=== PATIENT | male | born 1995 | race Caucasian/White ===

== ENCOUNTER 2021-04-01 16:53 | Inpatient (IN) | payer OTHER ==
[~2021-04-01] VITALS: Ht 175.3 cm; Wt 65.8 kg
[2021-04-01] MEDS ORDERED: ACETAMINOPHEN 325 MG TABLET PO PRN ×2 (21:15→21:45)
[2021-04-01] MEDS ORDERED: SENNA 187 MG TABLET PO SCH (21:30)
[2021-04-01 21:32] VITALS: BP 121/63
[2021-04-01] MEDS ORDERED: OxyCODONE HCL 10 MG IR TABLET PO PRN (21:45)
[2021-04-01] MEDS ORDERED: ONDANSETRON HCL 4 MG TABLET PO PRN (21:45)
[2021-04-01] MEDS ORDERED: IBUPROFEN 800 MG TABLET PO PRN (21:45)
[2021-04-01] MEDS: DOCUSATE SODIUM 250 MG CAPSULE PO SCH (22:28)
[2021-04-01] MEDS: SENNA 187 MG TABLET PO SCH (22:28)
[2021-04-01] MEDS: ENOXAPARIN SODIUM 30 MG/0.3 ML PF SYRINGE SQ SCH (22:28)
[2021-04-01] MEDS: GABAPENTIN 300 MG CAPSULE PO SCH (22:28)
[2021-04-01] MEDS: ETHYL ALCOHOL 62% ANTISEPTIC NASAL INHALANT 0.6 ML AMPUL NASAL SCH (22:29)
[2021-04-01] MEDS: TiZANidine HCL 4 MG TABLET PO SCH (23:21)
[2021-04-01 23:36] VITALS: BP 107/49
[2021-04-02] MEDS: OxyCODONE HCL 5 MG IR TABLET PO PRN (04:44)
[2021-04-02 06:23] LABS: BASOPHILS % (AUTO) 0.8 % (0.0-2.0); EOSINOPHILS % (AUTO) 2.1 % (1.0-6.0); HEMATOCRIT 28.7 % (41-53); HEMOGLOBIN 9.9 g/dL (13.5-17.5); LYMPHOCYTES # (AUTO) 1.1 K/uL (1.0-4.8); LYMPHOCYTES % (AUTO) 15.9 % (22.0-44.0); MEAN CORPUSCULAR HEMOGLOBIN 31.9 pg (26.0-34.0); MEAN CORPUSCULAR HGB CONC 34.6 G/dL (31.0-37.0); MEAN CORPUSCULAR VOLUME 92 fL (80-100); MONOCYTES # (AUTO) 0.6 K/uL (0.1-1.0); MONOCYTES % (AUTO) 9.1 % (2.0-9.0); NEUTROPHILS # (AUTO) 5.1 K/uL (1.8-7.7); NEUTROPHILS % (AUTO) 72.1 % (40.0-70.0); PLATELET COUNT (AUTO) 206 K/uL (150-450); RED BLOOD CELL COUNT(AUTO) 3.11 MIL/uL (4.50-5.90); RED CELL DISTRIBUTION WIDTH 13.1 % (11.5-14.5)
[2021-04-02 06:39] LABS: ALANINE AMINOTRANSFERASE 28 U/L (12-78); ALBUMIN 2.9 g/dL (3.4-5.0); ALKALINE PHOSPHATASE 37 U/L (46-116); ANION GAP 6 mmol/L (8-16); ASPARTATE AMINOTRANSFERASE 42 U/L (15-37); BILIRUBIN,TOTAL 0.6 mg/dL (0.1-1.0); CALCIUM, TOTAL 8.3 mg/dL (8.8-10.5); CARBON DIOXIDE 28 mmol/L (22-29); CHLORIDE 106 mmol/L (98-107); CREATININE 0.82 mg/dL (0.60-1.30); GLOMERULAR FILTR. RATE CALC > 60 mL/min (>60); GLUCOSE,RANDOM 97 mg/dL (70-110); POTASSIUM 3.9 mmol/L (3.5-5.1); SODIUM SERUM 140 mmol/L (136-145); UREA NITROGEN, BLOOD 7 mg/dL (7-18)
[2021-04-02] MEDS: NICOTINE 21 MG/24 HOUR PATCH TD SCH (07:58)
[2021-04-02] MEDS: TiZANidine HCL 4 MG TABLET PO SCH ×3 (07:58→20:13)
[2021-04-02] MEDS: GABAPENTIN 300 MG CAPSULE PO SCH ×3 (07:59→20:14)
[2021-04-02] MEDS: ENOXAPARIN SODIUM 30 MG/0.3 ML PF SYRINGE SQ SCH ×2 (07:59→20:13)
[2021-04-02] MEDS: POLYETHYLENE GLYCOL 3350 17 GM PACKET PO SCH (07:59)
[2021-04-02] MEDS: DOCUSATE SODIUM 250 MG CAPSULE PO SCH ×2 (07:59→20:14)
[2021-04-02] MEDS: ETHYL ALCOHOL 62% ANTISEPTIC NASAL INHALANT 0.6 ML AMPUL NASAL SCH ×2 (08:00→20:13)
[2021-04-02] MEDS: FERROUS SULFATE 325 MG EC TABLET PO SCH ×3 (08:00→17:25)
[2021-04-02 08:44] VITALS: BP 112/60
[2021-04-02] MEDS ORDERED: TiZANidine HCL 4 MG TABLET PO SCH (09:00)
[2021-04-02] MEDS ORDERED: GABAPENTIN 300 MG CAPSULE PO SCH (09:00)
[2021-04-02] MEDS ORDERED: ETHYL ALCOHOL 62% ANTISEPTIC NASAL INHALANT 0.6 ML AMPUL NASAL SCH (09:00)
[2021-04-02 16:13] VITALS: BP 111/63
[2021-04-02] MEDS: SENNA 187 MG TABLET PO SCH (20:13)
[2021-04-02] MEDS ORDERED: SENNA 187 MG TABLET PO SCH (21:00)
[2021-04-03 02:40] VITALS: BP 122/70
[2021-04-03 08:02] VITALS: BP 123/76
[2021-04-03] MEDS: NICOTINE 21 MG/24 HOUR PATCH TD SCH (08:22)
[2021-04-03] MEDS: ENOXAPARIN SODIUM 30 MG/0.3 ML PF SYRINGE SQ SCH ×2 (08:22→20:19)
[2021-04-03] MEDS: POLYETHYLENE GLYCOL 3350 17 GM PACKET PO SCH (08:23)
[2021-04-03] MEDS: GABAPENTIN 300 MG CAPSULE PO SCH ×3 (08:23→20:19)
[2021-04-03] MEDS: FERROUS SULFATE 325 MG EC TABLET PO SCH ×3 (08:23→17:29)
[2021-04-03] MEDS: DOCUSATE SODIUM 250 MG CAPSULE PO SCH ×2 (08:23→20:18)
[2021-04-03] MEDS: ETHYL ALCOHOL 62% ANTISEPTIC NASAL INHALANT 0.6 ML AMPUL NASAL SCH ×2 (08:23→20:18)
[2021-04-03] MEDS: TiZANidine HCL 4 MG TABLET PO SCH ×3 (08:25→20:19)
[2021-04-03] MEDS ORDERED: DOCUSATE SODIUM 283 MG/5 ML MINI-ENEMA PR PRN (08:45)
[2021-04-03 16:12] VITALS: BP 112/70
[2021-04-03] MEDS: SENNA 187 MG TABLET PO SCH (20:19)
[2021-04-04 06:12] VITALS: BP 128/59
[2021-04-04] MEDS: ETHYL ALCOHOL 62% ANTISEPTIC NASAL INHALANT 0.6 ML AMPUL NASAL SCH ×2 (08:08→20:30)
[2021-04-04] MEDS: ENOXAPARIN SODIUM 30 MG/0.3 ML PF SYRINGE SQ SCH ×2 (08:08→20:31)
[2021-04-04] MEDS: GABAPENTIN 300 MG CAPSULE PO SCH ×3 (08:08→20:31)
[2021-04-04] MEDS: POLYETHYLENE GLYCOL 3350 17 GM PACKET PO SCH (08:08)
[2021-04-04] MEDS: DOCUSATE SODIUM 250 MG CAPSULE PO SCH ×2 (08:08→20:32)
[2021-04-04] MEDS: FERROUS SULFATE 325 MG EC TABLET PO SCH ×3 (08:08→17:30)
[2021-04-04] MEDS: TiZANidine HCL 4 MG TABLET PO SCH ×3 (08:08→20:32)
[2021-04-04] MEDS: NICOTINE 21 MG/24 HOUR PATCH TD SCH (08:09)
[2021-04-04 08:28] VITALS: BP 123/65
[2021-04-04 16:02] VITALS: BP 113/63
[2021-04-04] MEDS: SENNA 187 MG TABLET PO SCH (20:31)
[2021-04-05 05:17] VITALS: BP 116/60
[2021-04-05] MEDS: NICOTINE 21 MG/24 HOUR PATCH TD SCH (07:49)
[2021-04-05] MEDS: ENOXAPARIN SODIUM 30 MG/0.3 ML PF SYRINGE SQ SCH ×2 (07:49→20:16)
[2021-04-05] MEDS: POLYETHYLENE GLYCOL 3350 17 GM PACKET PO SCH (07:49)
[2021-04-05] MEDS: TiZANidine HCL 4 MG TABLET PO SCH ×3 (07:50→20:16)
[2021-04-05] MEDS: ETHYL ALCOHOL 62% ANTISEPTIC NASAL INHALANT 0.6 ML AMPUL NASAL SCH ×2 (07:50→20:16)
[2021-04-05] MEDS: GABAPENTIN 300 MG CAPSULE PO SCH ×3 (07:50→20:16)
[2021-04-05] MEDS: DOCUSATE SODIUM 250 MG CAPSULE PO SCH ×2 (07:50→20:16)
[2021-04-05] MEDS: FERROUS SULFATE 325 MG EC TABLET PO SCH ×3 (07:50→17:40)
[2021-04-05 07:51] VITALS: BP 116/55
[2021-04-05] MEDS: OxyCODONE HCL 5 MG IR TABLET PO PRN (07:51)
[2021-04-05 16:00] VITALS: BP 115/69
[2021-04-05] MEDS: SENNA 187 MG TABLET PO SCH (20:16)
[2021-04-06 03:30] VITALS: BP 122/68
[2021-04-06] MEDS: ENOXAPARIN SODIUM 30 MG/0.3 ML PF SYRINGE SQ SCH ×2 (08:14→20:12)
[2021-04-06] MEDS: NICOTINE 21 MG/24 HOUR PATCH TD SCH (08:14)
[2021-04-06] MEDS: ETHYL ALCOHOL 62% ANTISEPTIC NASAL INHALANT 0.6 ML AMPUL NASAL SCH ×2 (08:14→20:13)
[2021-04-06] MEDS: DOCUSATE SODIUM 250 MG CAPSULE PO SCH ×2 (08:15→20:13)
[2021-04-06] MEDS: TiZANidine HCL 4 MG TABLET PO SCH ×3 (08:15→20:13)
[2021-04-06] MEDS: POLYETHYLENE GLYCOL 3350 17 GM PACKET PO SCH (08:15)
[2021-04-06] MEDS: FERROUS SULFATE 325 MG EC TABLET PO SCH ×3 (08:15→17:48)
[2021-04-06] MEDS: GABAPENTIN 300 MG CAPSULE PO SCH ×3 (08:21→20:13)
[2021-04-06 08:50] VITALS: BP 128/79
[2021-04-06 16:00] VITALS: BP 112/68
[2021-04-06] MEDS: SENNA 187 MG TABLET PO SCH (20:13)
[2021-04-07] MEDS ORDERED: GABA-1181 PO ×2 (02:51→15:46)
[2021-04-07] MEDS ORDERED: OXYC5 PO (02:51)
[2021-04-07] MEDS ORDERED: ACET-3385 PO (02:51)
[2021-04-07] MEDS ORDERED: DOCU-350 PO ×2 (02:51→15:46)
[2021-04-07] MEDS ORDERED: ASPI-1450 PO (02:51)
[2021-04-07 06:00] VITALS: BP 121/69
[2021-04-07] MEDS: POLYETHYLENE GLYCOL 3350 17 GM PACKET PO SCH (08:03)
[2021-04-07] MEDS: ETHYL ALCOHOL 62% ANTISEPTIC NASAL INHALANT 0.6 ML AMPUL NASAL SCH ×2 (08:04→20:20)
[2021-04-07] MEDS: GABAPENTIN 300 MG CAPSULE PO SCH ×3 (08:04→20:20)
[2021-04-07] MEDS: MULTIVITAMINS WITH MINERALS, THERAPEUTIC TABLET PO SCH (08:04)
[2021-04-07] MEDS: DOCUSATE SODIUM 250 MG CAPSULE PO SCH ×2 (08:04→20:20)
[2021-04-07] MEDS: NICOTINE 21 MG/24 HOUR PATCH TD SCH (08:04)
[2021-04-07] MEDS: TiZANidine HCL 4 MG TABLET PO SCH (08:04)
[2021-04-07] MEDS: ENOXAPARIN SODIUM 30 MG/0.3 ML PF SYRINGE SQ SCH ×2 (08:04→20:20)
[2021-04-07] MEDS: FERROUS SULFATE 325 MG EC TABLET PO SCH ×3 (08:05→17:30)
[2021-04-07 08:31] LABS: BASOPHILS % (AUTO) 0.8 % (0.0-2.0); EOSINOPHILS % (AUTO) 2.5 % (1.0-6.0); HEMATOCRIT 35.2 % (41-53); HEMOGLOBIN 11.9 g/dL (13.5-17.5); LYMPHOCYTES # (AUTO) 0.8 K/uL (1.0-4.8); LYMPHOCYTES % (AUTO) 11.8 % (22.0-44.0); MEAN CORPUSCULAR HEMOGLOBIN 31.6 pg (26.0-34.0); MEAN CORPUSCULAR HGB CONC 33.9 G/dL (31.0-37.0); MEAN CORPUSCULAR VOLUME 93 fL (80-100); MONOCYTES # (AUTO) 0.6 K/uL (0.1-1.0); MONOCYTES % (AUTO) 8.4 % (2.0-9.0); NEUTROPHILS # (AUTO) 5.4 K/uL (1.8-7.7); NEUTROPHILS % (AUTO) 76.5 % (40.0-70.0); PLATELET COUNT (AUTO) 386 K/uL (150-450); RED BLOOD CELL COUNT(AUTO) 3.78 MIL/uL (4.50-5.90); RED CELL DISTRIBUTION WIDTH 13.7 % (11.5-14.5)
[2021-04-07 08:33] VITALS: BP 122/74
[2021-04-07] MEDS ORDERED: TiZANidine HCL 4 MG TABLET PO PRN (10:30)
[2021-04-07] MEDS ORDERED: MULT-248 PO (15:46)
[2021-04-07] MEDS ORDERED: POLY17PO47 PO (15:46)
[2021-04-07] MEDS ORDERED: NICO-803 TD (15:46)
[2021-04-07] MEDS ORDERED: FERR-89 PO (15:46)
[2021-04-07 16:01] VITALS: BP 139/77
[2021-04-07] MEDS: SENNA 187 MG TABLET PO SCH (20:21)
[2021-04-07 23:53] VITALS: BP 119/70
[2021-04-08] VITALS: BP 119/70
[2021-04-08] MEDS: MULTIVITAMINS WITH MINERALS, THERAPEUTIC TABLET PO SCH (08:23)
[2021-04-08] MEDS: ETHYL ALCOHOL 62% ANTISEPTIC NASAL INHALANT 0.6 ML AMPUL NASAL SCH ×2 (08:23→20:10)
[2021-04-08] MEDS: DOCUSATE SODIUM 250 MG CAPSULE PO SCH ×2 (08:23→20:10)
[2021-04-08] MEDS: FERROUS SULFATE 325 MG EC TABLET PO SCH ×3 (08:23→17:26)
[2021-04-08] MEDS: GABAPENTIN 300 MG CAPSULE PO SCH ×3 (08:23→20:10)
[2021-04-08] MEDS: ENOXAPARIN SODIUM 30 MG/0.3 ML PF SYRINGE SQ SCH ×2 (08:24→20:10)
[2021-04-08] MEDS: NICOTINE 21 MG/24 HOUR PATCH TD SCH (08:25)
[2021-04-08] MEDS: POLYETHYLENE GLYCOL 3350 17 GM PACKET PO SCH (08:25)
[2021-04-08 09:16] VITALS: BP 118/61
[2021-04-08 16:49] VITALS: BP 129/75
[2021-04-08] MEDS: SENNA 187 MG TABLET PO SCH (20:10)
[2021-04-09 06:01] VITALS: BP 122/74
[2021-04-09] MEDS: NICOTINE 21 MG/24 HOUR PATCH TD SCH (08:22)
[2021-04-09] MEDS: ENOXAPARIN SODIUM 30 MG/0.3 ML PF SYRINGE SQ SCH ×2 (08:22→20:31)
[2021-04-09] MEDS: ETHYL ALCOHOL 62% ANTISEPTIC NASAL INHALANT 0.6 ML AMPUL NASAL SCH ×2 (08:22→20:30)
[2021-04-09] MEDS: GABAPENTIN 300 MG CAPSULE PO SCH ×3 (08:23→20:30)
[2021-04-09] MEDS: FERROUS SULFATE 325 MG EC TABLET PO SCH ×3 (08:23→17:55)
[2021-04-09] MEDS: MULTIVITAMINS WITH MINERALS, THERAPEUTIC TABLET PO SCH (08:23)
[2021-04-09] MEDS: DOCUSATE SODIUM 250 MG CAPSULE PO SCH ×2 (08:23→20:30)
[2021-04-09] MEDS: POLYETHYLENE GLYCOL 3350 17 GM PACKET PO SCH (08:29)
[2021-04-09 08:36] VITALS: BP 121/75
[2021-04-09 16:00] VITALS: BP 120/60
[2021-04-09] MEDS: SENNA 187 MG TABLET PO SCH (20:30)
[2021-04-10 05:43] VITALS: BP 122/69
[2021-04-10 08:02] VITALS: BP 118/78
[2021-04-10] MEDS: DOCUSATE SODIUM 250 MG CAPSULE PO SCH ×2 (08:46→20:35)
[2021-04-10] MEDS: ETHYL ALCOHOL 62% ANTISEPTIC NASAL INHALANT 0.6 ML AMPUL NASAL SCH ×2 (08:46→20:35)
[2021-04-10] MEDS: MULTIVITAMINS WITH MINERALS, THERAPEUTIC TABLET PO SCH (08:46)
[2021-04-10] MEDS: POLYETHYLENE GLYCOL 3350 17 GM PACKET PO SCH (08:46)
[2021-04-10] MEDS: GABAPENTIN 300 MG CAPSULE PO SCH ×3 (08:46→20:35)
[2021-04-10] MEDS: NICOTINE 21 MG/24 HOUR PATCH TD SCH (08:46)
[2021-04-10] MEDS: ENOXAPARIN SODIUM 30 MG/0.3 ML PF SYRINGE SQ SCH ×2 (08:46→20:35)
[2021-04-10] MEDS: FERROUS SULFATE 325 MG EC TABLET PO SCH ×3 (08:46→17:29)
[2021-04-10 16:02] VITALS: BP 129/72
[2021-04-10] MEDS: SENNA 187 MG TABLET PO SCH (20:35)
[2021-04-11] VITALS: BP 118/57
[2021-04-11] MEDS: ETHYL ALCOHOL 62% ANTISEPTIC NASAL INHALANT 0.6 ML AMPUL NASAL SCH ×2 (08:05→20:20)
[2021-04-11] MEDS: POLYETHYLENE GLYCOL 3350 17 GM PACKET PO SCH (08:05)
[2021-04-11] MEDS: NICOTINE 21 MG/24 HOUR PATCH TD SCH (08:05)
[2021-04-11] MEDS: MULTIVITAMINS WITH MINERALS, THERAPEUTIC TABLET PO SCH (08:05)
[2021-04-11] MEDS: FERROUS SULFATE 325 MG EC TABLET PO SCH ×3 (08:05→17:42)
[2021-04-11] MEDS: ENOXAPARIN SODIUM 30 MG/0.3 ML PF SYRINGE SQ SCH ×2 (08:05→20:27)
[2021-04-11] MEDS: DOCUSATE SODIUM 250 MG CAPSULE PO SCH ×3 (08:05→20:28)
[2021-04-11] MEDS: GABAPENTIN 300 MG CAPSULE PO SCH ×3 (08:05→20:20)
[2021-04-11 08:23] VITALS: BP 122/68
[2021-04-11 16:18] VITALS: BP 102/65
[2021-04-11] MEDS: SENNA 187 MG TABLET PO SCH (20:21)
[2021-04-12 00:28] VITALS: BP 108/68
[2021-04-12] MEDS: ENOXAPARIN SODIUM 30 MG/0.3 ML PF SYRINGE SQ SCH ×2 (08:16→20:27)
[2021-04-12] MEDS: MULTIVITAMINS WITH MINERALS, THERAPEUTIC TABLET PO SCH (08:17)
[2021-04-12] MEDS: GABAPENTIN 300 MG CAPSULE PO SCH ×3 (08:17→20:27)
[2021-04-12] MEDS: ETHYL ALCOHOL 62% ANTISEPTIC NASAL INHALANT 0.6 ML AMPUL NASAL SCH ×2 (08:17→20:27)
[2021-04-12] MEDS: NICOTINE 21 MG/24 HOUR PATCH TD SCH (08:17)
[2021-04-12] MEDS: FERROUS SULFATE 325 MG EC TABLET PO SCH ×3 (08:18→17:37)
[2021-04-12] MEDS: DOCUSATE SODIUM 250 MG CAPSULE PO SCH ×2 (08:21→20:27)
[2021-04-12] MEDS: POLYETHYLENE GLYCOL 3350 17 GM PACKET PO SCH (08:21)
[2021-04-12 08:23] VITALS: BP 117/69
[2021-04-12 16:00] VITALS: BP 118/60
[2021-04-12] MEDS: SENNA 187 MG TABLET PO SCH (20:27)
[2021-04-13 06:06] VITALS: BP 107/65
[2021-04-13] MEDS: ETHYL ALCOHOL 62% ANTISEPTIC NASAL INHALANT 0.6 ML AMPUL NASAL SCH ×2 (07:49→21:30)
[2021-04-13] MEDS: FERROUS SULFATE 325 MG EC TABLET PO SCH ×3 (07:49→16:00)
[2021-04-13] MEDS: NICOTINE 21 MG/24 HOUR PATCH TD SCH (07:49)
[2021-04-13] MEDS: GABAPENTIN 300 MG CAPSULE PO SCH ×3 (07:49→21:30)
[2021-04-13] MEDS: POLYETHYLENE GLYCOL 3350 17 GM PACKET PO SCH (07:49)
[2021-04-13] MEDS: MULTIVITAMINS WITH MINERALS, THERAPEUTIC TABLET PO SCH (07:49)
[2021-04-13] MEDS: DOCUSATE SODIUM 250 MG CAPSULE PO SCH ×2 (07:49→21:30)
[2021-04-13] MEDS: ENOXAPARIN SODIUM 30 MG/0.3 ML PF SYRINGE SQ SCH ×2 (07:49→21:30)
[2021-04-13 08:09] VITALS: BP 117/69
[2021-04-13 16:11] VITALS: BP 110/66
[2021-04-13] MEDS: SENNA 187 MG TABLET PO SCH (21:00)
[2021-04-14] VITALS: BP 114/68
[2021-04-14] MEDS: MULTIVITAMINS WITH MINERALS, THERAPEUTIC TABLET PO SCH (07:43)
[2021-04-14] MEDS: GABAPENTIN 300 MG CAPSULE PO SCH ×3 (07:43→20:56)
[2021-04-14] MEDS: ETHYL ALCOHOL 62% ANTISEPTIC NASAL INHALANT 0.6 ML AMPUL NASAL SCH ×2 (07:43→20:56)
[2021-04-14] MEDS: NICOTINE 21 MG/24 HOUR PATCH TD SCH (07:43)
[2021-04-14] MEDS: ENOXAPARIN SODIUM 30 MG/0.3 ML PF SYRINGE SQ SCH ×2 (07:43→20:57)
[2021-04-14] MEDS: FERROUS SULFATE 325 MG EC TABLET PO SCH ×3 (07:44→16:32)
[2021-04-14] MEDS: DOCUSATE SODIUM 250 MG CAPSULE PO SCH ×2 (07:44→20:56)
[2021-04-14] MEDS: POLYETHYLENE GLYCOL 3350 17 GM PACKET PO SCH (07:44)
[2021-04-14 10:48] VITALS: BP 116/71
[2021-04-14 16:33] VITALS: BP 129/61
[2021-04-14] MEDS: SENNA 187 MG TABLET PO SCH (21:00)
[2021-04-15 00:30] VITALS: BP 126/68
[2021-04-15] MEDS: DOCUSATE SODIUM 250 MG CAPSULE PO SCH ×2 (07:37→20:16)
[2021-04-15] MEDS: FERROUS SULFATE 325 MG EC TABLET PO SCH ×3 (07:37→16:15)
[2021-04-15] MEDS: MULTIVITAMINS WITH MINERALS, THERAPEUTIC TABLET PO SCH (07:37)
[2021-04-15] MEDS: NICOTINE 21 MG/24 HOUR PATCH TD SCH (07:37)
[2021-04-15] MEDS: GABAPENTIN 300 MG CAPSULE PO SCH ×3 (07:38→20:16)
[2021-04-15] MEDS: ETHYL ALCOHOL 62% ANTISEPTIC NASAL INHALANT 0.6 ML AMPUL NASAL SCH ×2 (07:38→20:16)
[2021-04-15] MEDS: ENOXAPARIN SODIUM 30 MG/0.3 ML PF SYRINGE SQ SCH ×2 (07:38→20:16)
[2021-04-15] MEDS: POLYETHYLENE GLYCOL 3350 17 GM PACKET PO SCH (07:38)
[2021-04-15 14:00] VITALS: BP 94/58
[2021-04-15 16:46] VITALS: BP 107/61
[2021-04-15] MEDS: SENNA 187 MG TABLET PO SCH (20:16)
[2021-04-16 00:29] VITALS: BP 103/54
[2021-04-16] MEDS: FERROUS SULFATE 325 MG EC TABLET PO SCH ×3 (07:30→16:01)
[2021-04-16] MEDS: NICOTINE 21 MG/24 HOUR PATCH TD SCH (08:13)
[2021-04-16] MEDS: DOCUSATE SODIUM 250 MG CAPSULE PO SCH ×2 (08:14→20:59)
[2021-04-16] MEDS: GABAPENTIN 300 MG CAPSULE PO SCH ×3 (08:14→20:58)
[2021-04-16] MEDS: ETHYL ALCOHOL 62% ANTISEPTIC NASAL INHALANT 0.6 ML AMPUL NASAL SCH ×2 (08:14→20:58)
[2021-04-16] MEDS: POLYETHYLENE GLYCOL 3350 17 GM PACKET PO SCH (08:14)
[2021-04-16] MEDS: MULTIVITAMINS WITH MINERALS, THERAPEUTIC TABLET PO SCH (08:14)
[2021-04-16] MEDS: ENOXAPARIN SODIUM 30 MG/0.3 ML PF SYRINGE SQ SCH ×2 (08:15→20:59)
[2021-04-16 14:33] VITALS: BP 118/79
[2021-04-16 17:06] VITALS: BP 96/63
[2021-04-16] MEDS: SENNA 187 MG TABLET PO SCH (20:59)
[2021-04-17 05:50] VITALS: BP 118/53
[2021-04-17] MEDS: ETHYL ALCOHOL 62% ANTISEPTIC NASAL INHALANT 0.6 ML AMPUL NASAL SCH ×2 (07:38→20:40)
[2021-04-17] MEDS: ENOXAPARIN SODIUM 30 MG/0.3 ML PF SYRINGE SQ SCH ×2 (07:39→20:41)
[2021-04-17] MEDS: NICOTINE 21 MG/24 HOUR PATCH TD SCH (07:39)
[2021-04-17] MEDS: DOCUSATE SODIUM 250 MG CAPSULE PO SCH ×2 (07:39→20:40)
[2021-04-17] MEDS: MULTIVITAMINS WITH MINERALS, THERAPEUTIC TABLET PO SCH (07:39)
[2021-04-17] MEDS: FERROUS SULFATE 325 MG EC TABLET PO SCH ×3 (07:40→17:27)
[2021-04-17] MEDS: GABAPENTIN 300 MG CAPSULE PO SCH ×3 (07:40→20:41)
[2021-04-17] MEDS: POLYETHYLENE GLYCOL 3350 17 GM PACKET PO SCH (07:40)
[2021-04-17 15:21] VITALS: BP 110/76
[2021-04-17 16:13] VITALS: BP 110/63
[2021-04-17] MEDS: SENNA 187 MG TABLET PO SCH (20:41)
[2021-04-18 06:00] VITALS: BP 111/62
[2021-04-18] MEDS: GABAPENTIN 300 MG CAPSULE PO SCH ×3 (07:51→20:40)
[2021-04-18] MEDS: NICOTINE 21 MG/24 HOUR PATCH TD SCH (07:51)
[2021-04-18] MEDS: ETHYL ALCOHOL 62% ANTISEPTIC NASAL INHALANT 0.6 ML AMPUL NASAL SCH ×2 (07:52→20:40)
[2021-04-18] MEDS: DOCUSATE SODIUM 250 MG CAPSULE PO SCH ×2 (07:52→20:40)
[2021-04-18] MEDS: ENOXAPARIN SODIUM 30 MG/0.3 ML PF SYRINGE SQ SCH ×2 (07:52→20:41)
[2021-04-18] MEDS: POLYETHYLENE GLYCOL 3350 17 GM PACKET PO SCH (07:52)
[2021-04-18] MEDS: FERROUS SULFATE 325 MG EC TABLET PO SCH ×3 (07:52→17:29)
[2021-04-18] MEDS: MULTIVITAMINS WITH MINERALS, THERAPEUTIC TABLET PO SCH (07:52)
[2021-04-18 13:05] VITALS: BP 110/64
[2021-04-18 16:20] VITALS: BP 102/68
[2021-04-18] MEDS: SENNA 187 MG TABLET PO SCH (20:41)
[2021-04-19] VITALS: BP 123/58
[2021-04-19] MEDS: DOCUSATE SODIUM 250 MG CAPSULE PO SCH ×2 (08:26→20:14)
[2021-04-19] MEDS: MULTIVITAMINS WITH MINERALS, THERAPEUTIC TABLET PO SCH (08:26)
[2021-04-19] MEDS: GABAPENTIN 300 MG CAPSULE PO SCH ×3 (08:26→20:14)
[2021-04-19] MEDS: FERROUS SULFATE 325 MG EC TABLET PO SCH ×3 (08:26→16:06)
[2021-04-19] MEDS: ENOXAPARIN SODIUM 30 MG/0.3 ML PF SYRINGE SQ SCH ×2 (08:27→20:14)
[2021-04-19] MEDS: NICOTINE 21 MG/24 HOUR PATCH TD SCH (08:27)
[2021-04-19] MEDS: POLYETHYLENE GLYCOL 3350 17 GM PACKET PO SCH (08:27)
[2021-04-19] MEDS: ETHYL ALCOHOL 62% ANTISEPTIC NASAL INHALANT 0.6 ML AMPUL NASAL SCH ×2 (08:27→20:14)
[2021-04-19 08:42] VITALS: BP 121/59
[2021-04-19 15:31] VITALS: BP 111/58
[2021-04-19] MEDS: SENNA 187 MG TABLET PO SCH (20:14)
[2021-04-19 23:52] VITALS: BP 122/70
[2021-04-20] MEDS: NICOTINE 21 MG/24 HOUR PATCH TD SCH (08:20)
[2021-04-20] MEDS: ETHYL ALCOHOL 62% ANTISEPTIC NASAL INHALANT 0.6 ML AMPUL NASAL SCH ×2 (08:20→20:42)
[2021-04-20] MEDS: FERROUS SULFATE 325 MG EC TABLET PO SCH ×3 (08:20→17:41)
[2021-04-20] MEDS: MULTIVITAMINS WITH MINERALS, THERAPEUTIC TABLET PO SCH (08:20)
[2021-04-20] MEDS: DOCUSATE SODIUM 250 MG CAPSULE PO SCH ×2 (08:20→20:41)
[2021-04-20] MEDS: POLYETHYLENE GLYCOL 3350 17 GM PACKET PO SCH (08:20)
[2021-04-20] MEDS: ENOXAPARIN SODIUM 30 MG/0.3 ML PF SYRINGE SQ SCH ×2 (08:21→20:42)
[2021-04-20] MEDS: GABAPENTIN 300 MG CAPSULE PO SCH ×3 (08:21→20:42)
[2021-04-20 08:34] VITALS: BP 112/60
[2021-04-20 16:44] VITALS: BP 107/57
[2021-04-20] MEDS: SENNA 187 MG TABLET PO SCH (20:42)
[2021-04-21 00:33] VITALS: BP 112/58
[2021-04-21] MEDS: ENOXAPARIN SODIUM 30 MG/0.3 ML PF SYRINGE SQ SCH ×2 (09:24→20:03)
[2021-04-21] MEDS: POLYETHYLENE GLYCOL 3350 17 GM PACKET PO SCH (09:25)
[2021-04-21] MEDS: DOCUSATE SODIUM 250 MG CAPSULE PO SCH ×2 (09:25→20:03)
[2021-04-21] MEDS: NICOTINE 21 MG/24 HOUR PATCH TD SCH (09:25)
[2021-04-21] MEDS: FERROUS SULFATE 325 MG EC TABLET PO SCH ×3 (09:25→17:27)
[2021-04-21] MEDS: MULTIVITAMINS WITH MINERALS, THERAPEUTIC TABLET PO SCH (09:25)
[2021-04-21] MEDS: GABAPENTIN 300 MG CAPSULE PO SCH ×3 (09:25→20:03)
[2021-04-21] MEDS: ETHYL ALCOHOL 62% ANTISEPTIC NASAL INHALANT 0.6 ML AMPUL NASAL SCH ×2 (09:36→20:03)
[2021-04-21 15:26] VITALS: BP 120/65
[2021-04-21 16:01] VITALS: BP 113/63
[2021-04-21] MEDS: SENNA 187 MG TABLET PO SCH (20:04)
[2021-04-22 05:50] VITALS: BP 110/58
[2021-04-22] MEDS: MULTIVITAMINS WITH MINERALS, THERAPEUTIC TABLET PO SCH (09:50)
[2021-04-22] MEDS: ENOXAPARIN SODIUM 30 MG/0.3 ML PF SYRINGE SQ SCH ×2 (09:51→20:54)
[2021-04-22] MEDS: GABAPENTIN 300 MG CAPSULE PO SCH ×3 (09:51→20:54)
[2021-04-22] MEDS: POLYETHYLENE GLYCOL 3350 17 GM PACKET PO SCH (09:51)
[2021-04-22] MEDS: FERROUS SULFATE 325 MG EC TABLET PO SCH (09:51)
[2021-04-22] MEDS: ETHYL ALCOHOL 62% ANTISEPTIC NASAL INHALANT 0.6 ML AMPUL NASAL SCH ×2 (09:52→20:54)
[2021-04-22] MEDS: DOCUSATE SODIUM 250 MG CAPSULE PO SCH (09:52)
[2021-04-22 11:05] VITALS: BP 115/62
[2021-04-22] MEDS: NICOTINE 21 MG/24 HOUR PATCH TD SCH (12:45)
[2021-04-22] MEDS ORDERED: ASPI-989 PO (14:32)
[2021-04-22 18:00] VITALS: BP 118/68
[2021-04-23 02:05] VITALS: BP 115/57
[2021-04-23] MEDS: ENOXAPARIN SODIUM 30 MG/0.3 ML PF SYRINGE SQ SCH ×2 (08:09→20:41)
[2021-04-23] MEDS: MULTIVITAMINS WITH MINERALS, THERAPEUTIC TABLET PO SCH (08:10)
[2021-04-23] MEDS: POLYETHYLENE GLYCOL 3350 17 GM PACKET PO SCH (08:10)
[2021-04-23] MEDS: NICOTINE 21 MG/24 HOUR PATCH TD SCH (08:10)
[2021-04-23] MEDS: GABAPENTIN 300 MG CAPSULE PO SCH ×3 (08:10→20:41)
[2021-04-23] MEDS: ETHYL ALCOHOL 62% ANTISEPTIC NASAL INHALANT 0.6 ML AMPUL NASAL SCH ×2 (09:14→20:41)
[2021-04-23 09:57] VITALS: BP 118/62
[2021-04-23 16:51] VITALS: BP 107/54
[2021-04-24 06:27] VITALS: BP 99/71
[2021-04-24 09:00] VITALS: BP 110/68
[2021-04-24] MEDS: POLYETHYLENE GLYCOL 3350 17 GM PACKET PO SCH (09:08)
[2021-04-24] MEDS: ENOXAPARIN SODIUM 30 MG/0.3 ML PF SYRINGE SQ SCH (09:08)
[2021-04-24] MEDS: NICOTINE 21 MG/24 HOUR PATCH TD SCH (09:09)
[2021-04-24] MEDS: MULTIVITAMINS WITH MINERALS, THERAPEUTIC TABLET PO SCH (09:09)
[2021-04-24] MEDS: ETHYL ALCOHOL 62% ANTISEPTIC NASAL INHALANT 0.6 ML AMPUL NASAL SCH (09:11)
[2021-04-24] MEDS: GABAPENTIN 300 MG CAPSULE PO SCH (09:12)
== END 2021-04-24 11:00 | disposition home or self-care (01) | DRG 536 ==
LOC: 2WR 20:23
PROVIDERS: ADMIT Physical Medicine & Rehabilitation; ATTEND Physical Medicine & Rehabilitation
DX: S72.002A Fracture of unspecified part of neck of left femur, initial encounter for closed fracture (principal); S92.213A Displaced fracture of cuboid bone of unspecified foot, initial encounter for closed fracture; D64.9 Anemia, unspecified; F17.200 Nicotine dependence, unspecified, uncomplicated; G62.9 Polyneuropathy, unspecified; G47.00 Insomnia, unspecified; K59.00 Constipation, unspecified; V29.9XXA Motorcycle rider (driver) (passenger) injured in unspecified traffic accident, initial encounter; Y93.89 Activity, other specified; Y92.89 Other specified places as the place of occurrence of the external cause; Y99.8 Other external cause status; S92.341A Displaced fracture of fourth metatarsal bone, right foot, initial encounter for closed fracture
CPT/HCPCS: 80053; 85025; 87081; 97110; 97112; 97140; 97150; 97162; 97166; 97530; 97535; 99366; J1650